=== PATIENT | male | born 1975 | race Caucasian/White ===

== ENCOUNTER 2022-07-28 14:31 | Outpatient (CLI) | payer MEDICAID, SELFPAY ==
[2022-07-28 22:31] LABS: Chloride* 106 mmol/L (96-114); Potassium* 4.8 mmol/L (3.6-5.1); Sodium* 142 mmol/L (135-149)
[2022-07-28 22:33] LABS: Cholesterol* 236 mg/dL (90-199)
[2022-07-28 22:34] LABS: Blood Urea Nitrogen* 10 mg/dL (5-24); Calcium* 9.8 mg/dL (8.4-10.6); Carbon Dioxide* 29 mmol/L (20-32); Estimated Glomerular Filt Rate 95 ml/min; Glucose* 98 mg/dL (60-115); Triglycerides* 226 mg/dL (40-149)
[2022-07-28 22:35] LABS: HDL Cholesterol* 60 mg/dL (>=40); LDL Cholesterol Calculated 131 mg/dL (<100)
== END 2022-07-28 14:32 | disposition home or self-care (01) ==
LOC: LKVREF 14:33
PROVIDERS: PCP Family Medicine; Visit Provider Family Medicine
DX: Z00.00 Encounter for general adult medical examination without abnormal findings (principal); F41.8 Other specified anxiety disorders; Z13.6 Encounter for screening for cardiovascular disorders
CPT/HCPCS: 80048; 80061; 84443

== ENCOUNTER 2024-06-17 09:42 | Outpatient (CLI) | payer MEDICAID, SELFPAY | END 2024-06-17 09:43 | disposition home or self-care (01) | LOC: LKVREF 09:45 | PROVIDERS: PCP Family Medicine; Visit Provider Family Medicine | DX: I10 Essential (primary) hypertension (principal); F10.10 Alcohol abuse, uncomplicated; Z13.220 Encounter for screening for lipoid disorders | CPT/HCPCS: 80053; 80061 ==